=== PATIENT | female | born 1980 ===

== ENCOUNTER 2018-04-07 15:30 | Inpatient (IN) | payer OTHER ==
[~2018-04-07] VITALS: Ht 167.6 cm; Wt 3.2 kg
[2018-05-03] MEDS ORDERED: PRENATAL TABLE1 EAC1 PO (00:43)
== END 2018-05-06 10:31 | disposition home or self-care (01) | DRG 788 ==
LOC: OB/GYN 05-01 15:30 → LDR 05-02 23:20 → OB/GYN 05-03 00:44 → LDR 05-03 08:12 → OB/GYN 05-03 18:09
PROVIDERS: ADMIT Obstetrics & Gynecology
PROC: 4A1HXCZ Monitoring of Products of Conception, Cardiac Rate, External Approach (ICD-10-PCS; 2018-05-02)
PROC: 4A033R1 Measurement of Arterial Saturation, Peripheral, Percutaneous Approach (ICD-10-PCS; 2018-05-03)
PROC: 10D00Z1 Extraction of Products of Conception, Low, Open Approach (ICD-10-PCS; principal; 2018-05-03 13:30)
DX: O62.0 Primary inadequate contractions (principal); Z3A.40 40 weeks gestation of pregnancy; Z37.0 Single live birth

== ENCOUNTER 2018-04-28 10:24 | Outpatient (CLI) | payer OTHER | END 2018-04-28 12:03 | disposition home or self-care (01) | LOC: NST 10:24 | DX: Z34.83 Encounter for supervision of other normal pregnancy, third trimester (principal) ==

== ENCOUNTER 2019-04-09 10:25 | Outpatient (CLI) | payer OTHER ==
[~2019-04-09 10:25] MED LIST: PRENATAL TABLE1 EAC1 PO
== END 2019-04-09 10:26 | disposition home or self-care (01) ==
LOC: SONOGRAMA 10:25
DX: N60.19 Diffuse cystic mastopathy of unspecified breast (principal); N63.10 Unspecified lump in the right breast, unspecified quadrant; N63.20 Unspecified lump in the left breast, unspecified quadrant

== ENCOUNTER 2020-08-28 09:55 | Outpatient (CLI) | payer OTHER | END 2020-08-28 10:09 | disposition home or self-care (01) | LOC: MAMO-SONO 09:55 | PROVIDERS: ATTEND Obstetrics & Gynecology Maternal & Fetal Medicine | DX: N60.11 Diffuse cystic mastopathy of right breast (principal); N64.4 Mastodynia; Z12.31 Encounter for screening mammogram for malignant neoplasm of breast ==

== ENCOUNTER → 2022-08-20 | Outpatient (CLI) | payer OTHER | END | disposition home or self-care (01) | LOC: MAMO-SONO 08:49 | PROVIDERS: ATTEND Obstetrics & Gynecology Maternal & Fetal Medicine | DX: Z12.31 Encounter for screening mammogram for malignant neoplasm of breast (principal); N63.0 Unspecified lump in unspecified breast; N64.4 Mastodynia; N60.11 Diffuse cystic mastopathy of right breast ==

== ENCOUNTER 2023-12-09 08:28 | Outpatient (CLI) | payer OTHER | END 2023-12-09 08:57 | disposition home or self-care (01) | LOC: MAMO-SONO 08:28 | PROVIDERS: ATTEND Obstetrics & Gynecology Maternal & Fetal Medicine | DX: N63 Unspecified lump in breast (principal); N64.4 Mastodynia; N60.11 Diffuse cystic mastopathy of right breast; Z12.31 Encounter for screening mammogram for malignant neoplasm of breast ==

== ENCOUNTER 2024-04-22 08:21 | Outpatient (CLI) | payer OTHER | END 2024-04-22 08:22 | disposition home or self-care (01) | LOC: SONOGRAMA 08:21 | PROVIDERS: ATTEND Obstetrics & Gynecology Maternal & Fetal Medicine | DX: N63.10 Unspecified lump in the right breast, unspecified quadrant (principal) ==

== ENCOUNTER 2025-01-24 08:59 | Outpatient (CLI) | payer OTHER | END 2025-01-24 09:08 | disposition home or self-care (01) | LOC: MAMO-SONO 08:59 | PROVIDERS: ATTEND Obstetrics & Gynecology Maternal & Fetal Medicine | DX: N64.4 Mastodynia (principal); N63 Unspecified lump in breast; N60.11 Diffuse cystic mastopathy of right breast; Z12.31 Encounter for screening mammogram for malignant neoplasm of breast ==